=== PATIENT | female | born 1975 | race Caucasian/White ===

== ENCOUNTER 2018-02-23 19:30 | Emergency (ER) | payer MEDICAID | END 2018-02-23 20:36 | disposition home or self-care (01) | LOC: E/R 20:36 | DX: H65.03 Acute serous otitis media, bilateral (principal) | CPT/HCPCS: 99283; Z7502 ==

== ENCOUNTER 2018-05-19 08:56 | Emergency (ER) | payer MEDICAID ==
[2018-05-19 09:21] LABS: URINE BLOOD (Dip) POC 2+ (NEGATIVE); URINE GLUCOSE (Dip) POC Negative (NEGATIVE); URINE KETONES (Dip) POC Negative (NEGATIVE); URINE LEUKOCYTE EST (Dip) POC Negative (NEGATIVE); URINE NITRITE (Dip) POC Negative (NEGATIVE); URINE TOTAL PROTEIN POC Negative (NEGATIVE)
[2018-05-19 09:21] LABS: URINE PH (Dip) POC 6.5 (5.0-8.5)
[2018-05-19] MEDS: ACETAMINOPHEN 500 MG TAB PO (09:25)
== END 2018-05-19 10:12 | disposition home or self-care (01) ==
LOC: FTE 08:56
DX: J06.9 Acute upper respiratory infection, unspecified (principal)
CPT/HCPCS: 71045; 81003; 81025; 87880; 99284-25